=== PATIENT | male | born 1965 | race Asian ===

== ENCOUNTER 2021-04-16 23:24 | Emergency (ER) | payer OTHER ==
[~2021-04-16] VITALS: Ht 167.6 cm; Wt 93.0 kg
[2021-04-16] MEDS ORDERED: LISI-893 PO (23:28)
[2021-04-16] MEDS ORDERED: HYDR25TA2 PO (23:28)
[2021-04-17] MEDS ORDERED: KETOROLAC TROMETHAMINE 30 MG/ML VIAL IVP ONE (01:30)
[2021-04-17] MEDS ORDERED: 0.9% SODIUM CHLORIDE 10 ML SYRINGE IVP PRN (01:30)
[2021-04-17] MEDS ORDERED: SODIUM CHLORIDE 0.9% 1,000 ML IV ONE (01:30)
[2021-04-17] MEDS: CLINDAMYCIN 600 MG/D5% WATER 50 ML IV ONE ×2 (01:47→01:58)
[2021-04-17 01:57] LABS: BASOPHILS % (AUTO) 0.4 % (0.0-2.0); EOSINOPHILS % (AUTO) 3.3 % (1.0-6.0); HEMOGLOBIN 13.5 g/dL (13.5-17.5); LYMPHOCYTES # (AUTO) 2.9 K/uL (1.0-4.8); LYMPHOCYTES % (AUTO) 36.9 % (22.0-44.0); MEAN CORPUSCULAR HEMOGLOBIN 31.6 pg (26.0-34.0); MEAN CORPUSCULAR HGB CONC 33.8 G/dL (31.0-37.0); MEAN CORPUSCULAR VOLUME 93 fL (80-100); MONOCYTES # (AUTO) 0.7 K/uL (0.1-1.0); MONOCYTES % (AUTO) 9.3 % (2.0-9.0); NEUTROPHILS # (AUTO) 3.9 K/uL (1.8-7.7); NEUTROPHILS % (AUTO) 50.1 % (40.0-70.0); PLATELET COUNT (AUTO) 364 K/uL (150-450); RED BLOOD CELL COUNT(AUTO) 4.28 MIL/uL (4.50-5.90); RED CELL DISTRIBUTION WIDTH 13.8 % (11.5-14.5)
[2021-04-17 02:00] VITALS: BP 100/68
[2021-04-17 02:13] LABS: INR 0.9 (0.9-1.1)
[2021-04-17 02:15] LABS: LACTIC ACID 1.2 mmol/L (0.4-2.0)
[2021-04-17 02:22] LABS: ANION GAP 12 mmol/L (8-16); CALCIUM, TOTAL 8.8 mg/dL (8.8-10.5); CARBON DIOXIDE 26 mmol/L (22-29); CHLORIDE 99 mmol/L (98-107); CREATININE 0.99 mg/dL (0.60-1.30); GLOMERULAR FILTR. RATE CALC > 60 mL/min (>60); GLUCOSE,RANDOM 125 mg/dL (70-110); POTASSIUM 3.3 mmol/L (3.5-5.1); SODIUM SERUM 137 mmol/L (136-145); UREA NITROGEN, BLOOD 27 mg/dL (7-18)
[2021-04-17 02:27] LABS: ALANINE AMINOTRANSFERASE 33 U/L (12-78); ALBUMIN 3.4 g/dL (3.4-5.0); ALKALINE PHOSPHATASE 131 U/L (46-116); ASPARTATE AMINOTRANSFERASE 25 U/L (15-37); BILIRUBIN,TOTAL 0.5 mg/dL (0.1-1.0); TOTAL PROTEIN, SERUM 7.4 g/dL (6.4-8.2)
[2021-04-17 02:35] LABS: COVID AG,FIA SOURCE NASOPHARYNGEAL
[2021-04-17] MEDS ORDERED: POTASSIUM CHLORIDE 20 MEQ ER TABLET PO ONE (03:00)
== END 2021-04-17 03:27 | disposition home or self-care (01) ==
LOC: EMS 23:24
DX: L03.113 Cellulitis of right upper limb (principal); I10 Essential (primary) hypertension; F17.210 Nicotine dependence, cigarettes, uncomplicated; Z20.822 Contact with and (suspected) exposure to COVID-19; Z79.899 Other long term (current) drug therapy
CPT/HCPCS: 36415; 73080; 80053; 83605; 85025; 85610; 87040; 87426; 93005; 93971; 96365; 96375; 99285; G0480; J1885; J3490; J7030

== ENCOUNTER 2021-08-27 00:36 | Emergency (ER) | payer OTHER ==
[~2021-08-27] VITALS: Ht 167.6 cm; Wt 93.0 kg
[~2021-08-27 00:36] MED LIST: HYDR25TA2 PO; LISI-893 PO
[2021-08-27] MEDS ORDERED: NAPR-1025 PO (00:46)
[2021-08-27] MEDS ORDERED: HYDROCODONE/ACETAMINOPHEN 5-325 MG TABLET PO ONE (01:00)
[2021-08-27 01:24] LABS: BASOPHILS % (AUTO) 0.6 % (0.0-2.0); EOSINOPHILS % (AUTO) 5.4 % (1.0-6.0); HEMATOCRIT 36.8 % (41-53); HEMOGLOBIN 12.7 g/dL (13.5-17.5); LYMPHOCYTES # (AUTO) 2.3 K/uL (1.0-4.8); LYMPHOCYTES % (AUTO) 35.2 % (22.0-44.0); MEAN CORPUSCULAR HEMOGLOBIN 31.6 pg (26.0-34.0); MEAN CORPUSCULAR HGB CONC 34.5 G/dL (31.0-37.0); MEAN CORPUSCULAR VOLUME 92 fL (80-100); MONOCYTES # (AUTO) 0.7 K/uL (0.1-1.0); MONOCYTES % (AUTO) 10.1 % (2.0-9.0); NEUTROPHILS # (AUTO) 3.2 K/uL (1.8-7.7); NEUTROPHILS % (AUTO) 48.7 % (40.0-70.0); PLATELET COUNT (AUTO) 439 K/uL (150-450); RED BLOOD CELL COUNT(AUTO) 4.01 MIL/uL (4.50-5.90); RED CELL DISTRIBUTION WIDTH 13.8 % (11.5-14.5)
[2021-08-27 01:24] LABS: COVID AG,FIA SOURCE NASAL SWAB
[2021-08-27 01:33] LABS: ANION GAP 6 mmol/L (8-16); CALCIUM, TOTAL 9.4 mg/dL (8.8-10.5); CARBON DIOXIDE 30 mmol/L (22-29); CHLORIDE 104 mmol/L (98-107); CREATININE 0.85 mg/dL (0.60-1.30); GLOMERULAR FILTR. RATE CALC > 60 mL/min (>60); GLUCOSE,RANDOM 104 mg/dL (70-110); POTASSIUM 4.7 mmol/L (3.5-5.1); SODIUM SERUM 140 mmol/L (136-145); UREA NITROGEN, BLOOD 24 mg/dL (7-18)
[2021-08-27 01:36] LABS: PROTHROMBIN TIME 10.5 SEC (9.4-11.6)
[2021-08-27 01:39] LABS: ALANINE AMINOTRANSFERASE 45 U/L (12-78); ALBUMIN 3.4 g/dL (3.4-5.0); ALKALINE PHOSPHATASE 130 U/L (46-116); ASPARTATE AMINOTRANSFERASE 26 U/L (15-37); BILIRUBIN,TOTAL 0.4 mg/dL (0.1-1.0); TOTAL PROTEIN, SERUM 7.5 g/dL (6.4-8.2)
[2021-08-27] MEDS ORDERED: ALBUTEROL SULFATE HFA 90 MCG/PUFF 8 GM INHALER IH ONE (02:30)
[2021-08-27] MEDS ORDERED: AZITHROMYCIN 500 MG TABLET PO ONE (02:30)
[2021-08-27] MEDS ORDERED: AZIT-104 PO (02:38)
[2021-08-27 02:40] VITALS: BP 138/80
== END 2021-08-27 02:49 | disposition home or self-care (01) ==
LOC: EMS 00:38
DX: S20.211A Contusion of right front wall of thorax, initial encounter (principal); I10 Essential (primary) hypertension; F17.210 Nicotine dependence, cigarettes, uncomplicated; Z20.822 Contact with and (suspected) exposure to COVID-19; Z79.899 Other long term (current) drug therapy; W05.1XXA Fall from non-moving nonmotorized scooter, initial encounter; Y93.89 Activity, other specified; Y92.89 Other specified places as the place of occurrence of the external cause; Y99.8 Other external cause status
CPT/HCPCS: 36415; 71101; 80053; 84484; 85025; 85610; 87426; 93005; 94640; 99285; Q9967; J3535

== ENCOUNTER 2022-04-25 12:47 | Emergency (ER) | payer OTHER ==
[~2022-04-25] VITALS: Ht 167.6 cm; Wt 101.0 kg
[~2022-04-25 12:47] MED LIST changes: +AZIT-104 PO; +NAPR-1025 PO
[2022-04-25] MEDS ORDERED: KETOROLAC TROMETHAMINE 30 MG/ML VIAL IM ONE (16:00)
[2022-04-25] MEDS ORDERED: CYCLOBENZAPRINE HCL 10 MG TABLET PO ONE (16:00)
[2022-04-25] MEDS ORDERED: IBUP-2070 PO (17:09)
[2022-04-25] MEDS ORDERED: CYCL-448 PO (17:09)
[2022-04-25 17:29] VITALS: BP 118/81
== END 2022-04-25 17:31 | disposition home or self-care (01) ==
LOC: EMS 13:04
DX: M54.50 Low back pain, unspecified (principal); I10 Essential (primary) hypertension; F17.210 Nicotine dependence, cigarettes, uncomplicated; Z98.890 Other specified postprocedural states
CPT/HCPCS: 99283; 72100; 96372; J1885

== ENCOUNTER 2022-05-15 18:02 | Emergency (ER) | payer OTHER ==
[~2022-05-15] VITALS: Ht 167.6 cm; Wt 90.0 kg
[~2022-05-15 18:02] MED LIST changes: -AZIT-104 PO; +CYCL-448 PO; +IBUP-2070 PO
[2022-05-15 20:32] LABS: BASOPHILS % (AUTO) 0.9 % (0.0-2.0); EOSINOPHILS % (AUTO) 4.1 % (1.0-6.0); HEMATOCRIT 43.8 % (41-53); HEMOGLOBIN 14.9 g/dL (13.5-17.5); LYMPHOCYTES # (AUTO) 2.5 K/uL (1.0-4.8); LYMPHOCYTES % (AUTO) 35.2 % (22.0-44.0); MEAN CORPUSCULAR HEMOGLOBIN 32.2 pg (26.0-34.0); MEAN CORPUSCULAR HGB CONC 34.1 G/dL (31.0-37.0); MEAN CORPUSCULAR VOLUME 94 fL (80-100); MONOCYTES # (AUTO) 0.5 K/uL (0.1-1.0); MONOCYTES % (AUTO) 7.5 % (2.0-9.0); NEUTROPHILS # (AUTO) 3.7 K/uL (1.8-7.7); NEUTROPHILS % (AUTO) 52.3 % (40.0-70.0); PLATELET COUNT (AUTO) 349 K/uL (150-450); RED BLOOD CELL COUNT(AUTO) 4.64 MIL/uL (4.50-5.90); RED CELL DISTRIBUTION WIDTH 13.8 % (11.5-14.5)
[2022-05-15 20:41] LABS: ANION GAP 3 mmol/L (8-16); CALCIUM, TOTAL 9.5 mg/dL (8.8-10.5); CARBON DIOXIDE 30 mmol/L (22-29); CHLORIDE 104 mmol/L (98-107); CREATININE 0.94 mg/dL (0.60-1.30); GLUCOSE,RANDOM 101 mg/dL (70-110); POTASSIUM 3.8 mmol/L (3.5-5.1); SODIUM SERUM 137 mmol/L (136-145); UREA NITROGEN, BLOOD 20 mg/dL (7-18)
[2022-05-15 20:42] LABS: GLOMERULAR FILTR. RATE CALC > 60 mL/min (>60)
[2022-05-15] MEDS ORDERED: BARIUM SULFATE 0.1% SUSPENSION 450 ML BOTTLE PO ONE (20:45)
[2022-05-15] MEDS ORDERED: ONDANSETRON HCL 4 MG/2 ML VIAL IVP ONE (20:45)
[2022-05-15] MEDS ORDERED: HYDROmorphone HCL 2 MG/ML SYRINGE IVP ONE (20:45)
[2022-05-15] MEDS ORDERED: SODIUM CHLORIDE 0.9% 1,000 ML IV ONE (20:45)
[2022-05-15 20:55] LABS: ALANINE AMINOTRANSFERASE 30 U/L (12-78); ALBUMIN 3.8 g/dL (3.4-5.0); ALKALINE PHOSPHATASE 95 U/L (46-116); ASPARTATE AMINOTRANSFERASE 22 U/L (15-37); BILIRUBIN,TOTAL 0.3 mg/dL (0.1-1.0); LIPASE 164 U/L (73-393); TOTAL PROTEIN, SERUM 7.3 g/dL (6.4-8.2)
[2022-05-15 21:58] LABS: APPEARANCE,URINE CLEAR (CLEAR); BILIRUBIN,URINE NEGATIVE (NEGATIVE); GLUCOSE, URINE (UA) NEGATIVE (NEGATIVE); KETONES,URINE NEGATIVE (NEGATIVE); LEUKOCYTE ESTERASE ,URINE NEGATIVE (NEGATIVE); NITRATE,URINE NEGATIVE (NEGATIVE); OCCULT BLOOD,URINE NEGATIVE (NEGATIVE); PROTEIN,URINE NEGATIVE (NEGATIVE); SPECIFIC GRAVITIY, URINE 1.034 (1.003-1.030); UROBILINOGEN,URINE <=1.0 mg/dL (<=1.0)
[2022-05-15] MEDS ORDERED: BACLOFEN 10 MG TABLET PO ONE (22:30)
[2022-05-15] MEDS ORDERED: HYDR-4723 PO (23:18)
[2022-05-15] MEDS ORDERED: BACL10TA PO (23:18)
[2022-05-15] MEDS ORDERED: POLY238P PO (23:18)
[2022-05-15 23:25] VITALS: BP 140/80
== END 2022-05-15 23:30 | disposition home or self-care (01) ==
LOC: EMS 19:30
DX: R10.32 Left lower quadrant pain (principal); G89.29 Other chronic pain; I10 Essential (primary) hypertension; F17.210 Nicotine dependence, cigarettes, uncomplicated; Z98.890 Other specified postprocedural states
CPT/HCPCS: 99285; 74177; 96374; 71045; 96361; 96375; 80053; 81003; 83690; 84484; 85025; 36415; 93005; J1170; J2405; J7030

== ENCOUNTER 2023-08-27 18:29 | Emergency (ER) | payer OTHER ==
[~2023-08-27] VITALS: Ht 167.6 cm; Wt 95.5 kg
[~2023-08-27 18:29] MED LIST changes: +BACL10TA PO; +HYDR-4723 PO; +IBUP-1492 PO; -IBUP-2070 PO; +POLY238P PO
[2023-08-27 18:31] VITALS: TEMP 98.2
[2023-08-27] MEDS ORDERED: HYDR25TA PO (18:33)
[2023-08-27] MEDS ORDERED: LOSA-381 PO (18:33)
[2023-08-27 21:00] VITALS: BP 155/89; PULSE 97; RESP 18
[2023-08-27] MEDS: IBUPROFEN 600 MG TABLET PO ONE (21:20)
[2023-08-27] MEDS: DOXYCYCLINE HYCLATE 100 MG TABLET PO ONE (21:20)
[2023-08-27] MEDS: LIDOCAINE 1% 10 ML VIAL SQ ONE (21:21)
[2023-08-27] MEDS: ONDANSETRON HCL 4 MG/2 ML VIAL IM ONE (21:21)
[2023-08-27] MEDS: CefTRIAXone SODIUM 1 GM/VIAL IM ONE (21:21)
[2023-08-27] MEDS: HYDROmorphone HCL 2 MG/ML SYRINGE IM ONE (21:22)
[2023-08-27] MEDS: LIDOCAINE/PF 1% 2 ML VIAL IM ONE (21:22)
[2023-08-27] MEDS ORDERED: IBUP-1554 PO (21:54)
[2023-08-27] MEDS ORDERED: CEPH-558 PO (21:54)
[2023-08-27] MEDS ORDERED: POLY119P3 PO (21:54)
[2023-08-27] MEDS ORDERED: DOXY-354 PO (21:54)
[2023-08-27] MEDS ORDERED: MUPI1OIN5 TP (21:55)
== END 2023-08-27 22:08 | disposition home or self-care (01) ==
LOC: EMS 18:30
DX: K13.0 Diseases of lips (principal); I10 Essential (primary) hypertension; F17.210 Nicotine dependence, cigarettes, uncomplicated; Z98.890 Other specified postprocedural states
CPT/HCPCS: 99284; 10160; 96372; J0696; J1170; J3490 ×2; J2405

== ENCOUNTER 2023-08-28 14:16 | Emergency (ER) | payer OTHER ==
[~2023-08-28] VITALS: Ht 167.6 cm; Wt 97.7 kg
[~2023-08-28 14:16] MED LIST changes: +CEPH-558 PO; +DOXY-354 PO; +HYDR25TA PO; +IBUP-1554 PO; +LOSA-381 PO; +MUPI1OIN5 TP; +POLY119P3 PO
[2023-08-28 14:19] VITALS: TEMP 98.5
[2023-08-28] MEDS ORDERED: DEXTROSE 5%-WATER 250 ML IV ONE (15:16)
[2023-08-28] MEDS ORDERED: VANCOMYCIN HCL 1 GM/VIAL ONE (15:16)
[2023-08-28] MEDS: VANCOMYCIN HCL 1.25 GM in DEXTROSE 5%-WATER 250 ML IV ONE (15:23)
[2023-08-28] MEDS: KETOROLAC TROMETHAMINE 30 MG/ML VIAL IVP ONE (15:23)
[2023-08-28] MEDS ORDERED: IOHEXOL 350 MG/ML 100 ML VIAL ONE (15:26)
[2023-08-28] MEDS ORDERED: SODIUM CHLORIDE 0.9% 100 ML ONE (15:26)
[2023-08-28] MEDS: CLINDAMYCIN 600 MG/D5% WATER 50 ML IV ONE (15:48)
[2023-08-28 16:01] LABS: BASOPHILS % (AUTO) 0.2 % (0.0-2.0); EOSINOPHILS % (AUTO) 1.2 % (1.0-6.0); HEMATOCRIT 42.9 % (41-53); HEMOGLOBIN 14.2 g/dL (13.5-17.5); LYMPHOCYTES # (AUTO) 1.9 K/uL (1.0-4.8); LYMPHOCYTES % (AUTO) 17.5 % (22.0-44.0); MEAN CORPUSCULAR HEMOGLOBIN 31.4 pg (26.0-34.0); MEAN CORPUSCULAR HGB CONC 33.1 G/dL (31.0-37.0); MEAN CORPUSCULAR VOLUME 95 fL (80-100); MONOCYTES # (AUTO) 0.9 K/uL (0.1-1.0); MONOCYTES % (AUTO) 8.1 % (2.0-9.0); NEUTROPHILS # (AUTO) 7.9 K/uL (1.8-7.7); PLATELET COUNT (AUTO) 263 K/uL (150-450); RED BLOOD CELL COUNT(AUTO) 4.52 MIL/uL (4.50-5.90); WHITE BLOOD COUNT (AUTO) 10.8 K/uL (4.5-11.0)
[2023-08-28 16:12] LABS: LACTIC ACID 1.2 mmol/L (0.4-2.0)
[2023-08-28 16:23] LABS: ANION GAP 7 mmol/L (8-16); CALCIUM, TOTAL 9.4 mg/dL (8.8-10.5); CARBON DIOXIDE 29 mmol/L (22-29); CHLORIDE 98 mmol/L (98-107); CREATININE 0.72 mg/dL (0.60-1.30); GLOMERULAR FILTR. RATE CALC > 60 mL/min (>60); GLUCOSE,RANDOM 118 mg/dL (70-110); POTASSIUM 3.7 mmol/L (3.5-5.1); SODIUM SERUM 134 mmol/L (136-145); UREA NITROGEN, BLOOD 12 mg/dL (7-18)
[2023-08-28 16:28] LABS: ALANINE AMINOTRANSFERASE 37 U/L (12-78); ALBUMIN 3.3 g/dL (3.4-5.0); ALKALINE PHOSPHATASE 93 U/L (46-116); ASPARTATE AMINOTRANSFERASE 31 U/L (15-37); TOTAL PROTEIN, SERUM 7.1 g/dL (6.4-8.2)
[2023-08-28 21:32] VITALS: BP 136/84; PULSE 80; RESP 18
== END 2023-08-28 21:49 | disposition short-term general hospital (02) ==
LOC: EMS 14:24 → UNDOADMIN 18:43 → AHU 18:43
DX: L03.211 Cellulitis of face (principal); L02.01 Cutaneous abscess of face; I10 Essential (primary) hypertension; F17.210 Nicotine dependence, cigarettes, uncomplicated
CPT/HCPCS: 99285; 96365; 70487; 96375; 80053; 83605; 85025; 87040; 36415; 96368; J3490; J1885; J3370; Q9967; J7060; J7050; G0378

== ENCOUNTER 2024-10-31 18:58 | Emergency (ER) | payer OTHER ==
[~2024-10-31] VITALS: Ht 167.6 cm; Wt 100.0 kg
[~2024-10-31 18:58] MED LIST changes: -BACL10TA PO; -CYCL-448 PO; +HYDR-4062 PO; -HYDR-4723 PO; -HYDR25TA2 PO; -IBUP-1492 PO; -LISI-893 PO; -NAPR-1025 PO; -POLY238P PO
[2024-10-31 19:04] VITALS: TEMP 97.7
[2024-10-31 19:55] LABS: BASOPHILS % (AUTO) 0.7 % (0.0-2.0); EOSINOPHILS % (AUTO) 2.6 % (1.0-6.0); HEMATOCRIT 49.7 % (41-53); HEMOGLOBIN 16.4 g/dL (13.5-17.5); LYMPHOCYTES # (AUTO) 2.6 K/uL (1.0-4.8); MEAN CORPUSCULAR HGB CONC 32.9 G/dL (31.0-37.0); MEAN CORPUSCULAR VOLUME 94 fL (80-100); MONOCYTES # (AUTO) 0.5 K/uL (0.1-1.0); MONOCYTES % (AUTO) 5.7 % (2.0-9.0); NEUTROPHILS # (AUTO) 5.6 K/uL (1.8-7.7); PLATELET COUNT (AUTO) 338 K/uL (150-450); RED BLOOD CELL COUNT(AUTO) 5.28 MIL/uL (4.50-5.90); RED CELL DISTRIBUTION WIDTH 14.7 % (11.5-14.5)
[2024-10-31 19:58] LABS: ANION GAP 10 mmol/L (8-16); CARBON DIOXIDE 27 mmol/L (22-29); CHLORIDE 103 mmol/L (98-107); CREATININE 1.16 mg/dL (0.60-1.30); GLOMERULAR FILTR. RATE CALC > 60 mL/min (>60); GLUCOSE,RANDOM 126 mg/dL (70-110); POTASSIUM 3.8 mmol/L (3.5-5.1); SODIUM SERUM 140 mmol/L (136-145); UREA NITROGEN, BLOOD 25 mg/dL (7-18)
[2024-10-31 20:06] LABS: TROPONIN I-HIGH SENSITIVITY 7 ng/L (<76)
[2024-10-31 21:00] VITALS: BP 132/86; PULSE 85; RESP 18; O2SAT 96
[2024-10-31] MEDS ORDERED: METOCLOPRAMIDE HCL 10 MG TABLET PO ONE (22:30)
[2024-10-31] MEDS ORDERED: ACETAMINOPHEN 325 MG TABLET PO ONE (22:30)
[2024-10-31] MEDS ORDERED: IBUPROFEN 400 MG TABLET PO ONE (22:30)
== END 2024-10-31 22:30 | disposition left against medical advice (07) ==
LOC: EMS 18:58
DX: R51.9 Headache, unspecified (principal); R42 Dizziness and giddiness; R11.0 Nausea; I10 Essential (primary) hypertension; F17.210 Nicotine dependence, cigarettes, uncomplicated; Z79.899 Other long term (current) drug therapy
CPT/HCPCS: 71045; 80048; 84484; 85025; 93005; 99285; 36415-L1; 36415-TC